=== PATIENT | female | born 1995 | race Caucasian/White ===

== ENCOUNTER 2021-05-10 22:57 | Inpatient (IN) | payer OTHER ==
[2021-05-10 23:42] VITALS: BMI 23.0
[2021-05-10] MEDS ORDERED: NS w/ Oxytocin 30 units 500 ML IV SCH (23:45)
[2021-05-10] MEDS ORDERED: Lactated Ringer's 1,000 ML IV SCH ×2 (23:45)
[2021-05-10 23:46] LABS: Fetal Membranes Rupture RUPTURE DETECTED (No Rupture)
[2021-05-10] MEDS ORDERED: Promethazine HCl 25 MG/ML VIAL IM PRN (23:59)
[2021-05-10] MEDS ORDERED: HYDROcodone/Acetaminophen 5/325 mg Tablet PO PRN ×2 (23:59)
[2021-05-10] MEDS ORDERED: hydrALAZINE 20 MG/ML VIAL SLOW IVP PRN (23:59)
[2021-05-10] MEDS ORDERED: Ibuprofen 800 MG TAB PO PRN (23:59)
[2021-05-10] MEDS ORDERED: Butorphanol Tartrate 1 MG/ML VIAL SLOW IVP PRN (23:59)
[2021-05-10] MEDS ORDERED: Lidocaine 1% (PF) 30 ML VIAL SC PRN (23:59)
[2021-05-11] MEDS ORDERED: Betamet Acet/Betamet Na Ph 30 MG/5 ML VIAL ONE (00:03)
[2021-05-11] MEDS ORDERED: Magnesium Sulfate 20 gm/500 ml 20 GM/500 ML BAG ONE (00:03)
[2021-05-11] MEDS ORDERED: Calcium Gluconate 4.6 MEQ in Sodium Chloride 0.9% 100 ML IVPB PRN (00:05)
[2021-05-11] MEDS: Betamet Acet/Betamet Na Ph 30 MG/5 ML VIAL IM SCH (00:12)
[2021-05-11] MEDS ORDERED: Magnesium Sulfate 20 GM/WATER 500 ML BAG IVPB SCH (00:15)
[2021-05-11] MEDS ORDERED: Ampicillin 2 GM VIAL ONE (00:23)
[2021-05-11] MEDS: Ampicillin 2 GM in Sodium Chloride 0.9% 100 ML IVPB SCH ×3 (00:26→20:18)
[2021-05-11 01:07] LABS: Mean Corpuscular Hemoglobin 31.6 pg (27.0-33.0); Mean Corpuscular Volume 93.1 fl (81.6-98.3); Mean Platelet Volume 12.4 fl (7.4-10.4); Platelet Count 159 10x3/uL (150-450); RBC Distribution Width 12.2 % (11.5-14.5); Red Blood Cell (RBC) Count 3.48 10x6/uL (3.90-5.03)
[2021-05-11 01:19] LABS: Magnesium 4.7 mg/dL (1.6-2.6)
[2021-05-11] MEDS ORDERED: Azithromycin 500 MG VIAL ONE (01:30)
[2021-05-11 01:39] LABS: Syphilis Antibody Nonreactive (Nonreactive); Syphilis Antibody Index 0.04 S/CO (<1.00 Non-Reactive)
[2021-05-11 01:40] LABS: Hep B Surf Ag Non-Reactive S/CO (NonReactive)
[2021-05-11 02:02] LABS: HBSAg Index 0.13 S/CO (0-0.99)
[2021-05-11] MEDS: Erythromycin 500 MG in Sodium Chloride 0.9% 250 ML 250 ML IVPB SCH ×3 (02:14→18:27)
[2021-05-11 03:20] LABS: SARS-CoV-2 NAA Rapid Test Not Detected (NotDetected)
[2021-05-11] MEDS ORDERED: Erythromycin 500 MG in Sodium Chloride 0.9% 250 ML 250 ML IVPB SCH (06:00)
[2021-05-11] MEDS: Ondansetron PF 4 MG/2 ML Vial IVP PRN (15:47)
[2021-05-11 18:21] LABS: Magnesium 6.5 mg/dL (1.6-2.6)
[2021-05-11] MEDS: Magnesium Sulfate 20 gm/500 ml 20 GM/500 ML BAG IVPB SCH (18:36)
[2021-05-11 21:59] LABS: Chlam.trachomatis by PCR,Urine Not Detected (NotDetected)
[2021-05-12] MEDS: Betamet Acet/Betamet Na Ph 30 MG/5 ML VIAL IM SCH (00:26)
[2021-05-12] MEDS: Erythromycin 500 MG in Sodium Chloride 0.9% 250 ML 250 ML IVPB SCH ×2 (00:55→07:57)
[2021-05-12] MEDS: Ampicillin 2 GM in Sodium Chloride 0.9% 100 ML IVPB SCH ×2 (02:17→08:52)
[2021-05-12] MEDS: Magnesium Sulfate 20 gm/500 ml 20 GM/500 ML BAG IVPB SCH (04:05)
[2021-05-12] MEDS ORDERED: Erythromycin 500 MG in Sodium Chloride 0.9% 250 ML 250 ML IVPB SCH ×3 (07:15→14:00)
[2021-05-12] MEDS ORDERED: Azithromycin 1,000 MG, Admixture Fee 1 EACH in Sodium Chloride 0.9% 500 ML IVPB SCH (13:00)
[2021-05-12 13:18] LABS: Magnesium 7.4 mg/dL (1.6-2.6)
[2021-05-13] MEDS ORDERED: hydrALAZINE 20 MG/ML VIAL SLOW IVP PRN (07:48)
[2021-05-13] MEDS ORDERED: Erythromycin Base 250 MG TAB PO SCH (09:00)
[2021-05-13] MEDS: Acetaminophen 500 MG TAB PO PRN (09:04)
[2021-05-13] MEDS: AMOXicillin 250 MG CAP PO SCH ×3 (09:05→21:22)
[2021-05-13] MEDS: Ampicillin 2 GM in Sodium Chloride 0.9% 100 ML IVPB SCH (13:16)
[2021-05-14] MEDS: AMOXicillin 250 MG CAP PO SCH ×3 (10:06→20:19)
[2021-05-15] MEDS: AMOXicillin 250 MG CAP PO SCH ×3 (10:52→21:02)
[2021-05-16] MEDS: AMOXicillin 250 MG CAP PO SCH ×3 (08:35→22:10)
[2021-05-17] MEDS: AMOXicillin 250 MG CAP PO SCH ×3 (10:30→21:29)
[2021-05-18] MEDS: AMOXicillin 250 MG CAP PO SCH (09:57)
[2021-05-18] MEDS: Ondansetron PF 4 MG/2 ML Vial IVP PRN (19:24)
[2021-05-18 19:39] LABS: Hemoglobin 12.2 g/dL (12.0-15.5); Mean Corpuscular HGB CONC 33.7 g/dL (32.0-36.0); Mean Corpuscular Hemoglobin 32.1 pg (27.0-33.0); Mean Corpuscular Volume 95.3 fl (81.6-98.3); Platelet Count 152 10x3/uL (150-450); RBC Distribution Width 11.9 % (11.5-14.5); White Blood Cell (WBC) Count 9.4 10x3/uL (3.5-10.5)
[2021-05-18] MEDS: Acetaminophen 500 MG TAB PO PRN (19:45)
[2021-05-18 19:58] LABS: Band 8 % (5-11); Lymphocytes 17 % (21-51); Neutrophil 75 % (42-75)
[2021-05-18 19:59] LABS: MDiff Complete? YES; Platelet Morphology Comment Appears Adequate; RBC Morphology Normal
[2021-05-18] MEDS ORDERED: Lactated Ringer's 1,000 ML IV SCH (20:00)
[2021-05-18] MEDS ORDERED: Calcium Gluc 4.6 MEQ/10 ML (100 MG/ML) SLOW IVP PRN (21:59)
[2021-05-18] MEDS ORDERED: Magnesium Sulfate 20 GM/WATER 500 ML BAG IVPB SCH (21:59)
[2021-05-18] MEDS ORDERED: ADMIXTURE FEE IVPB SCH (21:59)
[2021-05-18] MEDS ORDERED: GENTAMICIN IVPB SCH (21:59)
[2021-05-18] MEDS ORDERED: Lidocaine 1% (PF) 30 ML VIAL SC PRN (21:59)
[2021-05-18] MEDS ORDERED: Ibuprofen 800 MG TAB PO PRN (21:59)
[2021-05-18] MEDS ORDERED: HYDROcodone/Acetaminophen 5/325 mg Tablet PO PRN (21:59)
[2021-05-18] MEDS ORDERED: SODIUM CHLORIDE IVPB SCH (21:59)
[2021-05-18] MEDS ORDERED: Magnesium Sulfate 20 gm/500 ml 20 GM/500 ML BAG IVPB SCH (22:30)
[2021-05-18] MEDS ORDERED: NS w/ Oxytocin 30 units 500 ML IV SCH (23:30)
[2021-05-18] MEDS ORDERED: Misoprostol 100 MCG TAB VAG SCH (23:30)
[2021-05-18] MEDS ORDERED: Ampicillin 2 GM in Sodium Chloride 0.9% 100 ML IVPB SCH (23:59)
[2021-05-19] MEDS ORDERED: Ampicillin 2 GM VIAL ONE (07:50)
[2021-05-19 07:51] LABS: SARS-CoV-2 PCR by NAA Not Detected (NotDetected)
[2021-05-19] MEDS ORDERED: Famotidine/PF 20 mg/2ml Vial SLOW IVP PRN ×2 (08:00→08:40)
[2021-05-19] MEDS ORDERED: Bicitra 30 ML UDCUP PO PRN ×2 (08:00→08:40)
[2021-05-19] MEDS ORDERED: Calcium Gluc 4.6 MEQ/10 ML (100 MG/ML) SLOW IVP PRN (08:02)
[2021-05-19] MEDS ORDERED: Magnesium Sulfate 20 gm/500 ml 20 GM/500 ML BAG IVPB SCH (08:15)
[2021-05-19] MEDS ORDERED: Azithromycin 500 MG in Sodium Chloride 0.9% 250 ML 250 ML IVPB SCH (08:45)
[2021-05-19] MEDS ORDERED: Phenylephrine 40 MG/NS 250 ML 250 ML ONE (08:58)
[2021-05-19] MEDS ORDERED: Oxytocin 10 UNITS/ML VIAL ONE (08:59)
[2021-05-19] MEDS ORDERED: Ampicillin 2 GM in Sodium Chloride 0.9% 100 ML IVPB SCH (09:00)
[2021-05-19] MEDS ORDERED: Ketorolac Tromethamine 30 MG/ML VIAL ONE (09:00)
[2021-05-19] MEDS ORDERED: Ondansetron PF 4 MG/2 ML Vial ONE (09:00)
[2021-05-19] MEDS ORDERED: Morphine PF 10 MG/10 ML VIAL ONE (09:02)
[2021-05-19] MEDS ORDERED: ePHEDrine Sulfate 50 MG/10 ML VIAL ONE (09:07)
[2021-05-19] MEDS ORDERED: Poractant Alfa 240 MG/3 ML ONE (09:36)
[2021-05-19 10:38] LABS: pH (Cord, venous) 7.385 (7.250-7.350)
[2021-05-19] MEDS ORDERED: diphenhydrAMINE 50 MG/ML VIAL IVP PRN (10:50)
[2021-05-19] MEDS ORDERED: Ondansetron HCl/PF 4 MG/2 ML Vial IVP PRN (10:50)
[2021-05-19] MEDS ORDERED: Ondansetron PF 4 MG/2 ML Vial IVP PRN ×2 (10:50→12:34)
[2021-05-19] MEDS ORDERED: Meperidine HCl/PF 25 MG/ML VIAL SLOW IVP PRN (10:50)
[2021-05-19] MEDS ORDERED: Promethazine HCl 25 MG SUPP PR PRN (10:50)
[2021-05-19] MEDS ORDERED: L&D-Morphine 4 MG/ML VIAL SLOW IVP PRN (10:50)
[2021-05-19] MEDS ORDERED: Naloxone HCl 0.4 mg/ml Vial IVP PRN ×2 (10:50)
[2021-05-19] MEDS ORDERED: Promethazine HCl 25 MG/ML VIAL IM PRN ×2 (10:50→12:34)
[2021-05-19] MEDS ORDERED: Naloxone HCl 0.4 mg/ml Vial IV PRN (10:50)
[2021-05-19] MEDS ORDERED: Hydrocerin (Eucerin) Cream 120 gm Jar TOP PRN (10:50)
[2021-05-19] MEDS ORDERED: HYDROmorphone 2 MG/ML VIAL SLOW IVP PRN (10:50)
[2021-05-19] MEDS ORDERED: Communication Order-Pharmacy FS SCH (11:00)
[2021-05-19] MEDS ORDERED: NS w/ Oxytocin 30 units 500 ML ONE (12:20)
[2021-05-19] MEDS ORDERED: Meperidine HCl/PF 25 MG/ML VIAL IM PRN (12:34)
[2021-05-19] MEDS ORDERED: Simethicone Chewable 80 MG TAB PO PRN (12:34)
[2021-05-19] MEDS ORDERED: NS w/ Oxytocin 30 units 500 ML IV SCH (12:34)
[2021-05-19] MEDS ORDERED: Zolpidem Tartrate 5 MG TAB PO PRN (12:34)
[2021-05-19] MEDS ORDERED: Lanolin Ointment 7 GM TUBE TOP PRN (12:34)
[2021-05-19] MEDS ORDERED: Bisacodyl 10 MG SUPP PR PRN (12:34)
[2021-05-19] MEDS ORDERED: Boostrix 0.5 ML (Tdap) VIAL IM ONE (12:34)
[2021-05-19] MEDS ORDERED: diphenhydrAMINE 25 MG CAP PO PRN (12:34)
[2021-05-19] MEDS ORDERED: hydrALAZINE 20 MG/ML VIAL SLOW IVP PRN (12:34)
[2021-05-19] MEDS: Sodium Chloride 0.9% 1,000 ML IV SCH ×2 (15:19→19:06)
[2021-05-19] MEDS: cefTRIAXone\\ROCEPHIN 1 GM in Sodium Chloride 0.9% 100 ML IVPB SCH (15:39)
[2021-05-19] MEDS: Ibuprofen 800 MG TAB PO SCH (18:02)
[2021-05-19] MEDS: Docusate Calcium (SURFAK) 240 MG CAP PO SCH (22:27)
[2021-05-20] MEDS: Ibuprofen 800 MG TAB PO SCH ×4 (00:10→22:49)
[2021-05-20] MEDS: Sodium Chloride 0.9% 1,000 ML IV SCH ×3 (00:13→19:02)
[2021-05-20] MEDS: Ferrous Sulfate 325 MG TAB PO SCH ×3 (02:34→22:50)
[2021-05-20] MEDS: cefTRIAXone\\ROCEPHIN 1 GM in Sodium Chloride 0.9% 100 ML IVPB SCH ×2 (04:05→14:52)
[2021-05-20 07:38] LABS: Hemoglobin 9.3 g/dL (12.0-15.5); Mean Corpuscular HGB CONC 33.6 g/dL (32.0-36.0); Mean Corpuscular Volume 95.2 fl (81.6-98.3); Mean Platelet Volume 12.6 fl (7.4-10.4); Platelet Count 95 10x3/uL (150-450); RBC Distribution Width 12.1 % (11.5-14.5); Red Blood Cell (RBC) Count 2.91 10x6/uL (3.90-5.03); White Blood Cell (WBC) Count 5.5 10x3/uL (3.5-10.5)
[2021-05-20] MEDS: Docusate Calcium (SURFAK) 240 MG CAP PO SCH ×2 (09:11→22:50)
[2021-05-20] MEDS: Prenatal Vitamin 1 TAB PO SCH (09:11)
[2021-05-20] MEDS: HYDROcodone/Acetaminophen 5/325 mg Tablet PO PRN ×2 (09:11→16:31)
[2021-05-21] MEDS: cefTRIAXone\\ROCEPHIN 1 GM in Sodium Chloride 0.9% 100 ML IVPB SCH (03:55)
[2021-05-21] MEDS: HYDROcodone/Acetaminophen 5/325 mg Tablet PO PRN ×3 (04:46→22:22)
[2021-05-21] MEDS: Ibuprofen 800 MG TAB PO SCH ×3 (06:38→22:21)
[2021-05-21] MEDS: Sodium Chloride 0.9% 1,000 ML IV SCH ×2 (06:42→12:05)
[2021-05-21] MEDS: Docusate Calcium (SURFAK) 240 MG CAP PO SCH ×2 (08:24→22:20)
[2021-05-21] MEDS: Ferrous Sulfate 325 MG TAB PO SCH ×2 (08:24→22:21)
[2021-05-21] MEDS: Prenatal Vitamin 1 TAB PO SCH (08:24)
[2021-05-22] MEDS: Ibuprofen 800 MG TAB PO SCH ×2 (06:27→14:19)
[2021-05-22] MEDS: Sodium Chloride 0.9% 1,000 ML IV SCH (07:43)
[2021-05-22] MEDS: Docusate Calcium (SURFAK) 240 MG CAP PO SCH (08:32)
[2021-05-22] MEDS: Prenatal Vitamin 1 TAB PO SCH (08:32)
[2021-05-22] MEDS: Ferrous Sulfate 325 MG TAB PO SCH (08:32)
[2021-05-22 09:23] VITALS: BP 118/70; TEMP 98.6
== END 2021-05-22 15:40 | disposition home or self-care (01) | DRG 786 ==
LOC: CSHLD/OP 22:57 → CSHLD 23:55 → UNDOADMIN 05-11 00:41 → CSHANTE 05-13 09:40 → CSHLD 05-18 22:19 → CSHPED 05-19 14:09
PROVIDERS: ADMIT Obstetrics & Gynecology; ATTEND Obstetrics & Gynecology
PROC: 10D00Z1 Extraction of Products of Conception, Low, Open Approach (ICD-10-PCS; principal; 2021-05-19)
DX: O42.913 Preterm premature rupture of membranes, unspecified as to length of time between rupture and onset of labor, third trimester (principal); O41.1230 Chorioamnionitis, third trimester, not applicable or unspecified; Z3A.28 28 weeks gestation of pregnancy; Z37.0 Single live birth; O76 Abnormality in fetal heart rate and rhythm complicating labor and delivery; Z20.822 Contact with and (suspected) exposure to COVID-19
CPT/HCPCS: 36415; 51702; 76815; 82805; 83735; 84112; 85025; 85027; 86780; 86850; 86900; 86901; 87081; 87340; 87491; 87591; 88307; 99285; J0290; J0696; J0702; J1364; J1580; J1885; J2274; J2405; J3475; J3490; J7050; U0002; U0003; U0005

== ENCOUNTER 2025-09-21 19:21 | Inpatient (IN) | payer BC ==
[2025-09-21 19:50] VITALS: BMI 27.6
[2025-09-21] MEDS ORDERED: Calcium Gluc 4.6 MEQ/10 ML (100 MG/ML) SLOW IVP PRN (20:08)
[2025-09-21] MEDS ORDERED: hydrALAZINE 20 MG/ML VIAL SLOW IVP PRN ×2 (20:08→20:29)
[2025-09-21] MEDS: hydrALAZINE 20 MG/ML VIAL ONE (20:26)
[2025-09-21] MEDS ORDERED: Ondansetron PF 4 MG/2 ML Vial IVP PRN (20:29)
[2025-09-21 20:33] VITALS: BP 170/103
[2025-09-21 20:46] LABS: #Basophils 0.03 10x3/uL (0.0-0.2); #Eosinophils 0.11 10x3/uL (0.0-0.5); #Monocytes 0.90 10x3/uL (0.0-1.1); #Neutrophils 5.84 10x3/uL (1.5-8.4); %Basophils 0.3 % (0.0-2.0); %Eosinophils 1.2 % (0.0-6.0); %Lymphocytes 26.5 % (18.0-47.0); %Monocytes 9.6 % (0.0-10.0); %Neutrophils 62.1 % (40.0-75.0); Hematocrit 28.9 % (34.9-44.5); Hemoglobin 9.7 g/dL (12.0-15.5); Mean Corpuscular Hemoglobin 31.5 pg (27.0-33.0); Mean Corpuscular Volume 93.8 fL (81.6-98.3); Platelet Count 179 10x3/uL (150-450); Red Blood Cell (RBC) Count 3.08 10x6/uL (3.90-5.03); White Blood Cell (WBC) Count 9.40 10x3/uL (3.5-10.5)
[2025-09-21] MEDS: Magnesium Sulfate 20 gm/500 ml 20 GM/500 ML BAG IVPB SCH (20:50)
[2025-09-21 20:59] LABS: ALT (SGPT) 20 U/L (Less than 34); AST (SGOT) 44 U/L (11-34); Albumin 2.5 g/dL (3.1-4.5); Alkaline Phosphatase 128 U/L (40-110); Anion Gap 15 mmol/L (10-20); BUN (Urea Nitrogen) 10 mg/dL (7.0-18.7); Bilirubin, Total 0.3 mg/dL (0.3-1.2); Calc. Creatinine Clearance 151 mL/min (70-130); Calcium 8.1 mg/dL (7.8-10.44); Carbon Dioxide 17 mmol/L (22-29); Chloride 111 mmol/L (98-107); Globulin 3.5 g/dL (2.4-3.5); Glucose 66 mg/dL (70-105); Potassium 3.8 mmol/L (3.5-5.1); Sodium 139 mmol/L (136-145)
== END 2025-09-22 00:15 | disposition short-term general hospital (02) | DRG 833 ==
LOC: CSHLD/OP 19:21 → CSHLD 09-22 00:14
PROVIDERS: ADMIT Obstetrics & Gynecology; ATTEND Obstetrics & Gynecology
DX: O14.12 Severe pre-eclampsia, second trimester (principal); O36.5920 Maternal care for other known or suspected poor fetal growth, second trimester, not applicable or unspecified; Z3A.27 27 weeks gestation of pregnancy; Z79.899 Other long term (current) drug therapy; Z79.82 Long term (current) use of aspirin
CPT/HCPCS: 80053; 82570; 84156; 85025; 96360; 96365; 96375; 99285; J0360; J0702; J3475